=== PATIENT | female | born 1990 | race Caucasian/White ===

== ENCOUNTER 2022-07-28 09:05 | Outpatient (OUT) | payer BC, SELFPAY ==
[2022-07-28 09:28] VITALS: BP 107/56; PULSE 129
== END 2022-07-28 10:37 | disposition home or self-care (01) ==
LOC: FBCO 09:09 → FBC 09:12
PROVIDERS: PCP Internal Medicine; Visit Provider Midwife
DX: O99.280 Endocrine, nutritional and metabolic diseases complicating pregnancy, unspecified trimester (principal); Z3A.00 Weeks of gestation of pregnancy not specified
CPT/HCPCS: 59025

== ENCOUNTER 2022-08-12 17:52 | Inpatient (IN) | payer BC, SELFPAY ==
[2022-08-12] VITALS (15 sets, daily range): BP systolic 88–121; BP diastolic 50–66; PULSE 92–118; RESP 16; TEMP 36.6
--- NOTE | 2022-08-12 18:20 | PC.NURSE ---
Epidural before breaking water
[2022-08-12] MEDS: DINOPROSTONE 10 MG VAG INSERT.ER VAGINAL (18:58)
[2022-08-12 19:01] LABS: Basophils Percent Auto 0.1 % (0.2-2.0); Eosinophils Absolute Auto 0.1 10^3/uL (0.0-0.7); Eosinophils Percent Auto 0.8 % (0.9-7.0); Hematocrit 33.9 % (36.0-48.0); Hemoglobin 11.2 g/dL (12.0-16.0); Immature Granulocytes Abs Auto 0.09 10^3/uL (0.00-0.03); Immature Granulocytes Pct Auto 0.9 % (0.0-0.5); Lymphocytes Absolute Auto 1.4 10^3/uL (1.2-3.8); Mean Corpuscular Hemoglobin 28.1 pg (26.7-34.0); Mean Corpuscular Volume 85.2 fL (81.0-99.0); Mean Platelet Volume 9.7 fL (9.5-13.5); Monocytes Absolute Auto 0.7 10^3/uL (0.3-0.8); Neutrophils Absolute Auto 7.9 10^3/uL (1.4-6.5); Neutrophils Percent Auto 77.2 % (43.0-75.0); Platelet Count 184 10^3/uL (150-450); Red Blood Count 3.98 10^6/uL (4.20-5.40); Red Cell Distribution Width 13.2 % (11.0-15.0); White Blood Count 10.2 10^3/uL (4.0-11.0)
[2022-08-12 19:21] LABS: Amphetamine Screen Urine NEGATIVE (NEGATIVE); Barbiturates Screen Urine NEGATIVE (NEGATIVE); Benzodiazepines Screen Urine NEGATIVE (NEGATIVE); Buprenorphine Screen Urine NEGATIVE (NEGATIVE); Cannabinoid Screen Urine NEGATIVE (NEGATIVE); Cocaine Screen Urine NEGATIVE (NEGATIVE); Methadone Screen Urine NEGATIVE (NEGATIVE); Methamphetamines Screen Urine NEGATIVE (NEGATIVE); Opiate Screen Urine NEGATIVE (NEGATIVE); Oxycodone Screen Urine NEGATIVE (NEGATIVE); Phencyclidine Screen Urine NEGATIVE (NEGATIVE); Tricyclic Antidepressant Urine NEGATIVE (NEGATIVE)
--- NOTE | 2022-08-12 19:37 | W.PC.ACHO ---
Registration Status: ADM IN Primary Language: Bahamian Preferred Language: Bahamian Active Medications Generic Name Dose Route Start Last Admin Trade Name Freq PRN Reason Stop Dose Admin Carboprost Tromethamine 250 mcg 08/12/22 18:04 Carboprost Tromethamine 250 Mcg/Ml 1 Ml Vial IM Q15M PRN Bleeding Sodium Chloride 1,000 mls @ 125 mls/hr 08/12/22 18:15 Sodium Chloride 0.9% 1,000 Ml IV .Q8H PRN Labor Induction Oxytocin 10 unit/ Sodium 501 mls @ 6.012 mls/hr 08/12/22 06:00 Chloride IV Q24H KENNA 2 MILLIUNIT/MIN Lidocaine 5 ml 08/12/22 18:04 Lidocaine Viscous 2% 15 Ml Topical Solution TOPICAL ONCE PRN Pain Lidocaine 1 ml 08/12/22 18:04 Lidocaine Hcl 1% 200 Mg/20 Ml Mdv INJ ONCE PRN Pain Methylergonovine Maleate 0.2 mg 08/12/22 18:04 Methylergonovine Maleate 0.2 Mg/Ml Ampule IM ONCE PRN Uterine Contractility/Contract Misoprostol 600 mcg 08/12/22 18:04 Misoprostol 100 Mcg Tablet PO ONCE PRN Uterine Bleeding Nalbuphine HCl 10 mg 08/12/22 18:04 Nalbuphine Hcl 10 Mg/Ml Ampule IV Q3H PRN Pain Ondansetron HCl 4 mg 08/12/22 18:04 Ondansetron Pf 4 Mg/2 Ml Vial IV Q6H PRN Nausea And Vomiting Ondansetron HCl 4 mg 08/12/22 18:04 Ondansetron 4 Mg Rapdis Tablet SL Q6H PRN Nausea And Vomiting Oxytocin 10 unit 08/12/22 18:04 Oxytocin 100 Unit/10 Ml Vial IM ONCE PRN Uterine Bleeding Diet Category Date Time Status Clear Liquid Diet Diet 08/13/22 Breakfast Active Consults Category Date Time Status Consult to Anesthesiology Routine Cons 08/12/22 Ordered IV Insertion/Site Date of IV Line Insertion [18g 08/12/22 right Hand] IV Insertion Time [18g right 18:40 Hand] Neurology Patient orientation (short person,place,time,situation list) Respiratory Oxygen Delivery Method Room Air
--- NOTE | 2022-08-12 22:33 | PC.NURSE ---
Patient resting comfortably. Denies any needs at this time.
[2022-08-13] VITALS (97 sets, daily range): BP systolic 46–250; BP diastolic 20–152; PULSE 71–121; RESP 16–18; TEMP 35.7–36.7
[2022-08-13] MEDS: ACETAMINOPHEN 500 MG TABLET 1000 MG PO (03:20)
[2022-08-13] MEDS: OXYTOCIN 10 UNIT in 0.9 % SODIUM CHLORIDE 500 ML 6.012 UNIT IV ×2 (07:00→19:09)
[2022-08-13] MEDS: 0.9 % SODIUM CHLORIDE 1,000 ML 125 ML IV ×5 (07:00→18:02)
--- NOTE | 2022-08-13 07:15 | W.PC.ACHO ---
Registration Status: ADM IN Primary Language: Ugandan Preferred Language: Ugandan Active Medications Generic Name Dose Route Start Last Admin Trade Name Juan PRN Reason Stop Dose Admin Carboprost Tromethamine 250 mcg 08/12/22 18:04 Carboprost Tromethamine 250 Mcg/Ml 1 Ml Vial IM Q15M PRN Bleeding Sodium Chloride 1,000 mls @ 125 mls/hr 08/12/22 18:15 Sodium Chloride 0.9% 1,000 Ml IV .Q8H PRN Labor Induction Oxytocin 10 unit/ Sodium 501 mls @ 6.012 mls/hr 08/12/22 06:00 Chloride IV Q24H KENNA 2 MILLIUNIT/MIN Oxytocin 20 unit/ Sodium 1,002 mls @ 125 mls/hr 08/13/22 05:15 Chloride IV 08/13/22 13:14 Q8H PRN Post Protocol Lidocaine 5 ml 08/12/22 18:04 Lidocaine Viscous 2% 15 Ml Topical Solution TOPICAL ONCE PRN Pain Lidocaine 1 ml 08/12/22 18:04 Lidocaine Hcl 1% 200 Mg/20 Ml Mdv INJ ONCE PRN Pain Methylergonovine Maleate 0.2 mg 08/12/22 18:04 Methylergonovine Maleate 0.2 Mg/Ml Ampule IM ONCE PRN Uterine Contractility/Contract Misoprostol 600 mcg 08/12/22 18:04 Misoprostol 100 Mcg Tablet PO ONCE PRN Uterine Bleeding Nalbuphine HCl 10 mg 08/12/22 18:04 Nalbuphine Hcl 10 Mg/Ml Ampule IV Q3H PRN Pain Ondansetron HCl 4 mg 08/12/22 18:04 Ondansetron Pf 4 Mg/2 Ml Vial IV Q6H PRN Nausea And Vomiting Ondansetron HCl 4 mg 08/12/22 18:04 Ondansetron 4 Mg Rapdis Tablet SL Q6H PRN Nausea And Vomiting Oxytocin 10 unit 08/12/22 18:04 Oxytocin 100 Unit/10 Ml Vial IM ONCE PRN Uterine Bleeding Diet Category Date Time Status Clear Liquid Diet Diet 08/13/22 Breakfast Active IV Insertion/Site Date of IV Line Insertion [18g 08/12/22 right Hand] IV Insertion Time [18g right 18:40 Hand] Neurology Patient orientation (short person,place,time,situation list) Respiratory Lung sounds [Throughout] clear Oxygen Delivery Method Room Air Oxygen Delivery Method Room Air Renal Bladder Pattern Continent
--- NOTE | 2022-08-13 07:27 | PM.OBHP ---
OB - H&P: HPI History of Present Illness Chief complaint: CERVADEL : 2 Para: 1 Date of last menstrual period: 11/03/2021 Gestational age based on last menstrual period: 39w 4d Indications for induction: other (hypothyroid ) History of Present Dating criteria: LMP confirmed by 1st trimester US care: good care Ultrasounds: normal 1st trimester US and normal mid trimester US complications: other complications comment: hypothyroid Labs Blood type: O (+) positive Rubella: immune RPR/VDLR: nonreactive GBS status: negative HBsAG: negative Review of Systems ROS Status of ROS 10 or more systems reviewed and unremarkable except as noted in history and below PFSH PFSH Social History Gender Identity: female Meds Home Medications and Allergies Home Medications Medication Instructions Recorded Confirmed Type aspirin 81 mg capsule 81 mg PO DAILY 08/12/22 08/12/22 History levothyroxine 200 mcg tablet 200 mcg PO DAILY 08/12/22 08/12/22 History levothyroxine 75 mcg tablet 75 mcg PO DAILY 08/12/22 08/12/22 History vit no.95-ferrous 1 tab PO DAILY 08/12/22 08/12/22 History fumarate 28 mg-folic acid 800 mcg tablet () sertraline 25 mg tablet 25 mg PO Q24H 08/12/22 08/12/22 History Allergies Allergy/AdvReac Type Severity Reaction Status Date / Time Penicillins Allergy Intermediate Verified 08/12/22 18:57 Exam Constitutional Vital Signs - 24 hr 08/12/22 18:14 08/12/22 19:00 08/12/22 19:15 Temperature 97.9 F Pulse Rate 117 H 118 H 96 H Respiratory Rate Blood Pressure 121/61 H 117/66 110/61 Blood Pressure [Left Arm] Oxygen Delivery Method 08/12/22 19:30 08/12/22 19:45 08/12/22 20:00 Temperature Pulse Rate 100 H 101 H 108 H Respiratory Rate Blood Pressure 106/59 L 105/60 116/65 Blood Pressure [Left Arm] Oxygen Delivery Method 08/12/22 20:15 08/12/22 20:30 08/12/22 20:45 Temperature Pulse Rate 96 H 100 H 93 H Respiratory Rate Blood Pressure 106/60 107/61 105/58 L Blood Pressure [Left Arm] Oxygen Delivery Method 08/12/22 21:00 08/12/22 21:22 08/12/22 22:22 Temperature Pulse Rate 99 H 92 H 99 H Respiratory Rate Blood Pressure 104/57 L 113/59 L 88/51 L Blood Pressure [Left Arm] Oxygen Delivery Method 08/12/22 22:28 08/12/22 23:22 08/13/22 00:22 Temperature Pulse Rate 99 H 109 H 103 H Respiratory Rate Blood Pressure 90/52 L 97/50 L 89/54 L Blood Pressure [Left Arm] Oxygen Delivery Method 08/13/22 00:22 08/12/22 23:22 08/12/22 22:22 Temperature 97.9 F Pulse Rate Respiratory Rate 16 16 16 Blood Pressure Blood Pressure [Left Arm] Oxygen Delivery Method 08/13/22 01:22 08/13/22 02:22 08/13/22 02:52 Temperature 98 F Pulse Rate 115 H 95 H Respiratory Rate Blood Pressure 106/55 L 105/58 L Blood Pressure [Left Arm] Oxygen Delivery Method 08/13/22 03:22 08/13/22 04:22 08/13/22 04:22 Temperature Pulse Rate 90 102 H Respiratory Rate 16 Blood Pressure 120/64 H 114/60 Blood Pressure [Left Arm] Oxygen Delivery Method 08/13/22 05:22 08/13/22 06:26 08/13/22 07:22 Temperature Pulse Rate 96 H 91 H 99 H Respiratory Rate Blood Pressure 110/66 108/62 111/66 Blood Pressure [Left Arm] Oxygen Delivery Method 08/12/22 18:13 08/13/22 00:20 Temperature 97.8 F Pulse Rate 117 H Respiratory Rate 16 Blood Pressure Blood Pressure [Left Arm] 121/61 H Oxygen Delivery Method Room Air Room Air Results Labs Labs: Short CBC 08/12/22 Range/Units 18:40 WBC 10.2 (4.0-11.0) 10^3/uL Hgb 11.2 L (12.0-16.0) g/dL Hct 33.9 L (36.0-48.0) % Plt Count 184 (150-450) 10^3/uL
--- NOTE | 2022-08-13 08:29 | PC.NURSE ---
0826 damaso berry at bedside. pt not symptomatic with lower bp. no meds given.
--- NOTE | 2022-08-13 08:30 | PC.NURSE ---
0830 roger 100 mcg given per car supervisor
--- NOTE | 2022-08-13 08:33 | PC.NURSE ---
0833 roger 100 mcg per shoe lining fitter
--- NOTE | 2022-08-13 08:35 | PC.NURSE ---
0833 lithographer apprentice remains in room. notified of bp. pt feels fine . denies dizziness or lightheadedness.
[2022-08-13] MEDS: ROPIVACAINE HCL/PF 400 MG/200 ML PREMIX 6 MG EPIDURAL (08:40)
[2022-08-13] MEDS: FENTANYL CITRATE/PF 100 MCG/2 ML VIAL EPIDURAL ×2 (08:41→11:20)
--- NOTE | 2022-08-13 09:19 | PM.OBPN ---
OB - PN: Subj Subjective Patient comments: no complaints Narrative: SVE performed /-3 posterior, unable to break water at this time due to station. Will continue pitocin infusion, reposition patient frequently. Exam Constitutional Vital Signs - 24 hr 08/12/22 18:14 08/12/22 19:00 08/12/22 19:15 Temperature 97.9 F Pulse Rate 117 H 118 H 96 H Respiratory Rate Blood Pressure 121/61 H 117/66 110/61 Blood Pressure [Left Arm] Oxygen Delivery Method 08/12/22 19:30 08/12/22 19:45 08/12/22 20:00 Temperature Pulse Rate 100 H 101 H 108 H Respiratory Rate Blood Pressure 106/59 L 105/60 116/65 Blood Pressure [Left Arm] Oxygen Delivery Method 08/12/22 20:15 08/12/22 20:30 08/12/22 20:45 Temperature Pulse Rate 96 H 100 H 93 H Respiratory Rate Blood Pressure 106/60 107/61 105/58 L Blood Pressure [Left Arm] Oxygen Delivery Method 08/12/22 21:00 08/12/22 21:22 08/12/22 22:22 Temperature Pulse Rate 99 H 92 H 99 H Respiratory Rate Blood Pressure 104/57 L 113/59 L 88/51 L Blood Pressure [Left Arm] Oxygen Delivery Method 08/12/22 22:28 08/12/22 23:22 08/13/22 00:22 Temperature Pulse Rate 99 H 109 H 103 H Respiratory Rate Blood Pressure 90/52 L 97/50 L 89/54 L Blood Pressure [Left Arm] Oxygen Delivery Method 08/13/22 00:22 08/12/22 23:22 08/12/22 22:22 Temperature 97.9 F Pulse Rate Respiratory Rate 16 16 16 Blood Pressure Blood Pressure [Left Arm] Oxygen Delivery Method 08/13/22 01:22 08/13/22 02:22 08/13/22 02:52 Temperature 98 F Pulse Rate 115 H 95 H Respiratory Rate Blood Pressure 106/55 L 105/58 L Blood Pressure [Left Arm] Oxygen Delivery Method 08/13/22 03:22 08/13/22 04:22 08/13/22 04:22 Temperature Pulse Rate 90 102 H Respiratory Rate 16 Blood Pressure 120/64 H 114/60 Blood Pressure [Left Arm] Oxygen Delivery Method 08/13/22 05:22 08/13/22 06:26 08/13/22 07:22 Temperature Pulse Rate 96 H 91 H 99 H Respiratory Rate Blood Pressure 110/66 108/62 111/66 Blood Pressure [Left Arm] Oxygen Delivery Method 08/13/22 07:27 08/13/22 07:53 08/13/22 08:14 Temperature 97.3 F L Pulse Rate 99 H 115 H Respiratory Rate Blood Pressure 112/65 107/61 Blood Pressure [Left Arm] Oxygen Delivery Method 08/13/22 08:21 08/13/22 08:26 08/13/22 08:27 Temperature Pulse Rate 97 H 90 97 H Respiratory Rate Blood Pressure 108/56 L 84/46 L 84/49 L Blood Pressure [Left Arm] Oxygen Delivery Method 08/13/22 08:30 08/13/22 08:32 08/13/22 08:34 Temperature Pulse Rate 97 H 86 88 Respiratory Rate Blood Pressure 80/43 L 90/54 L 84/47 L Blood Pressure [Left Arm] Oxygen Delivery Method 08/13/22 08:38 08/13/22 08:42 08/13/22 08:47 Temperature Pulse Rate 93 H 96 H 86 Respiratory Rate Blood Pressure 90/55 L 83/56 L 101/55 L Blood Pressure [Left Arm] Oxygen Delivery Method 08/13/22 08:50 08/13/22 09:01 08/13/22 09:15 Temperature Pulse Rate 83 88 88 Respiratory Rate Blood Pressure 89/53 L 88/49 L 91/53 L Blood Pressure [Left Arm] Oxygen Delivery Method 08/12/22 18:13 08/13/22 00:20 Temperature 97.8 F Pulse Rate 117 H Respiratory Rate 16 Blood Pressure Blood Pressure [Left Arm] 121/61 H Oxygen Delivery Method Room Air Room Air Results Labs Labs: Short CBC 08/12/22 Range/Units 18:40 WBC 10.2 (4.0-11.0) 10^3/uL Hgb 11.2 L (12.0-16.0) g/dL Hct 33.9 L (36.0-48.0) % Plt Count 184 (150-450) 10^3/uL OB - PN: A/P Time Spent with Patient Time: Total time spent is greater than 50% in coordination of care (as documented) at patient's floor/unit and/or counseling patient: Total time spent with greater than 50% in coordination of care (as documented) at patient's floor/unit and/or counseling patient: less than 15 minutes
[2022-08-13] MEDS: EPHEDRINE SULFATE 50 MG/ML VIAL IV ×4 (14:08→17:41)
--- NOTE | 2022-08-13 19:18 | W.PC.ACHO ---
Registration Status: ADM IN Primary Language: Ecuadorean Preferred Language: Ecuadorean 1907 care relinquished to elizabeth barber Active Medications Generic Name Dose Route Start Last Admin Trade Name Juan PRN Reason Stop Dose Admin Carboprost Tromethamine 250 mcg 08/12/22 18:04 Carboprost Tromethamine 250 Mcg/Ml 1 Ml Vial IM Q15M PRN Bleeding Diphenhydramine HCl 25 mg 08/13/22 07:14 Diphenhydramine Hcl 50 Mg/Ml (1ml) Vial IV Q6H PRN Itching Ephedrine Sulfate 5 mg 08/13/22 07:14 08/13/22 17:41 Ephedrine Sulfate 50 Mg/Ml Vial IV 5 mg Q5M PRN Administration Blood Pressure - Low Fentanyl Citrate 100 mcg 08/13/22 13:06 Fentanyl Citrate/Pf 100 Mcg/2 Ml Vial EPIDURAL Q4H PRN Pain Sodium Chloride 1,000 mls @ 125 mls/hr 08/12/22 18:15 08/13/22 18:02 Sodium Chloride 0.9% 1,000 Ml IV 125 mls/hr .Q8H PRN Administration Labor Induction Oxytocin 10 unit/ Sodium 501 mls @ 6.012 mls/hr 08/12/22 06:00 08/13/22 19:09 Chloride IV 2 milliunit/min Q24H KENNA 6.012 mls/hr Administration 2 MILLIUNIT/MIN Ropivacaine/Sodium Chloride 400 mg in 200 mls @ 6 mls/hr 08/13/22 07:15 08/13/22 08:40 Naropin 0.2% 400 Mg/200 Ml Bag EPIDURAL 6 mls/hr Q24H KENNA 6 mls/hr Administration Ropivacaine/Sodium Chloride 400 mg in 200 mls @ 6 mls/hr 08/13/22 13:15 Naropin 0.2% 400 Mg/200 Ml Bag EPIDURAL Q24H KENNA Lidocaine 5 ml 08/12/22 18:04 Lidocaine Viscous 2% 15 Ml Topical Solution TOPICAL ONCE PRN Pain Lidocaine 1 ml 08/12/22 18:04 Lidocaine Hcl 1% 200 Mg/20 Ml Mdv INJ ONCE PRN Pain Lidocaine 5 ml 08/13/22 07:14 Lidocaine Hcl 2% Pf 100 Mg/5 Ml Vial INJ Q1H PRN Pain Lidocaine 5 ml 08/13/22 13:06 Lidocaine Hcl 2% Pf 100 Mg/5 Ml Vial INJ Q1H PRN Pain Methylergonovine Maleate 0.2 mg 08/12/22 18:04 Methylergonovine Maleate 0.2 Mg/Ml Ampule IM ONCE PRN Uterine Contractility/Contract Misoprostol 600 mcg 08/12/22 18:04 Misoprostol 100 Mcg Tablet PO ONCE PRN Uterine Bleeding Nalbuphine HCl 10 mg 08/12/22 18:04 Nalbuphine Hcl 10 Mg/Ml Ampule IV Q3H PRN Pain Ondansetron HCl 4 mg 08/12/22 18:04 Ondansetron Pf 4 Mg/2 Ml Vial IV Q6H PRN Nausea And Vomiting Ondansetron HCl 4 mg 08/12/22 18:04 Ondansetron 4 Mg Rapdis Tablet SL Q6H PRN Nausea And Vomiting Oxytocin 10 unit 08/12/22 18:04 Oxytocin 100 Unit/10 Ml Vial IM ONCE PRN Uterine Bleeding Diet Category Date Time Status Regular Consistency Diet Diet 08/13/22 Dinner Active Respiratory Lung sounds [Throughout] clear Oxygen Delivery Method Room Air Renal Bladder Pattern Continent
--- NOTE | 2022-08-13 20:31 | PM.OBPN ---
OB - PN: Subj Subjective Patient comments: no complaints Narrative: SVE performed, patient is 7-8/90/[address] Duenas updated with patients exam and progress. Exam Constitutional Vital Signs - 24 hr 08/12/22 20:45 08/12/22 21:00 08/12/22 21:22 Temperature Pulse Rate 93 H 99 H 92 H Respiratory Rate Blood Pressure 105/58 L 104/57 L 113/59 L Oxygen Delivery Method 08/12/22 22:22 08/12/22 22:28 08/12/22 23:22 Temperature Pulse Rate 99 H 99 H 109 H Respiratory Rate Blood Pressure 88/51 L 90/52 L 97/50 L Oxygen Delivery Method 08/13/22 00:22 08/13/22 00:22 08/12/22 23:22 Temperature Pulse Rate 103 H Respiratory Rate 16 16 Blood Pressure 89/54 L Oxygen Delivery Method 08/12/22 22:22 08/13/22 01:22 08/13/22 02:22 Temperature 97.9 F Pulse Rate 115 H 95 H Respiratory Rate 16 Blood Pressure 106/55 L 105/58 L Oxygen Delivery Method 08/13/22 02:52 08/13/22 03:22 08/13/22 04:22 Temperature 98 F Pulse Rate 90 102 H Respiratory Rate Blood Pressure 120/64 H 114/60 Oxygen Delivery Method 08/13/22 04:22 08/13/22 05:22 08/13/22 06:26 Temperature Pulse Rate 96 H 91 H Respiratory Rate 16 Blood Pressure 110/66 108/62 Oxygen Delivery Method 08/13/22 07:22 08/13/22 07:27 08/13/22 07:53 Temperature 97.3 F L Pulse Rate 99 H 99 H Respiratory Rate Blood Pressure 111/66 112/65 Oxygen Delivery Method 08/13/22 08:14 08/13/22 08:21 08/13/22 08:26 Temperature Pulse Rate 115 H 97 H 90 Respiratory Rate Blood Pressure 107/61 108/56 L 84/46 L Oxygen Delivery Method 08/13/22 08:27 08/13/22 08:30 08/13/22 08:32 Temperature Pulse Rate 97 H 97 H 86 Respiratory Rate Blood Pressure 84/49 L 80/43 L 90/54 L Oxygen Delivery Method 08/13/22 08:34 08/13/22 08:38 08/13/22 08:42 Temperature Pulse Rate 88 93 H 96 H Respiratory Rate Blood Pressure 84/47 L 90/55 L 83/56 L Oxygen Delivery Method 08/13/22 08:47 08/13/22 08:50 08/13/22 09:01 Temperature Pulse Rate 86 83 88 Respiratory Rate Blood Pressure 101/55 L 89/53 L 88/49 L Oxygen Delivery Method 08/13/22 09:15 08/13/22 09:22 08/13/22 09:24 Temperature 97.2 F L Pulse Rate 88 88 Respiratory Rate Blood Pressure 91/53 L 98/55 L Oxygen Delivery Method 08/13/22 09:39 08/13/22 09:54 08/13/22 10:09 Temperature Pulse Rate 89 90 97 H Respiratory Rate Blood Pressure 96/53 L 94/55 L 94/51 L Oxygen Delivery Method 08/13/22 10:24 08/13/22 10:40 08/13/22 10:55 Temperature Pulse Rate 93 H 81 86 Respiratory Rate Blood Pressure 94/51 L 106/60 96/50 L Oxygen Delivery Method 08/13/22 11:16 08/13/22 11:25 08/13/22 11:30 Temperature 98.1 F Pulse Rate 90 114 H Respiratory Rate Blood Pressure 118/58 L 103/70 Oxygen Delivery Method 08/13/22 11:40 08/13/22 11:54 08/13/22 12:09 Temperature Pulse Rate 103 H 93 H 100 H Respiratory Rate Blood Pressure 98/54 L 98/56 L 97/52 L Oxygen Delivery Method 08/13/22 12:24 08/13/22 12:39 08/13/22 12:42 Temperature 97.2 F L Pulse Rate 87 93 H Respiratory Rate Blood Pressure 92/52 L 90/52 L Oxygen Delivery Method 08/13/22 12:55 08/13/22 13:09 08/13/22 13:25 Temperature Pulse Rate 115 H 107 H 90 Respiratory Rate Blood Pressure 113/61 111/52 L 100/55 L Oxygen Delivery Method 08/13/22 13:40 08/13/22 13:54 08/13/22 13:57 Temperature Pulse Rate 107 H 105 H 101 H Respiratory Rate Blood Pressure 105/52 L 108/57 L 110/58 L Oxygen Delivery Method 08/13/22 14:02 08/13/22 14:05 08/13/22 14:08 Temperature 97.3 F L Pulse Rate 121 H 81 Respiratory Rate Blood Pressure 108/55 L 85/41 L Oxygen Delivery Method 08/13/22 14:10 08/13/22 14:16 08/13/22 14:18 Temperature Pulse Rate 71 77 91 H Respiratory Rate Blood Pressure 46/20 L 115/56 L 115/55 L Oxygen Delivery Method 08/13/22 14:21 08/13/22 14:25 08/13/22 14:29 Temperature Pulse Rate 103 H 103 H 86 Respiratory Rate Blood Pressure 109/58 L 103/52 L 81/41 L Oxygen Delivery Method 08/13/22 14:32 08/13/22 14:37 08/13/22 14:41 Temperature Pulse Rate 89 83 79 Respiratory Rate Blood Pressure 105/51 L 105/57 L 118/58 L Oxygen Delivery Method 08/13/22 14:45 08/13/22 15:05 08/13/22 15:19 Temperature Pulse Rate 79 100 H 104 H Respiratory Rate Blood Pressure 111/56 L 97/49 L 92/51 L Oxygen Delivery Method 08/13/22 15:34 08/13/22 15:49 08/13/22 16:05 Temperature Pulse Rate 107 H 101 H 82 Respiratory Rate Blood Pressure 87/50 L 110/49 L 105/59 L Oxygen Delivery Method 08/13/22 16:07 08/13/22 16:07 08/13/22 16:19 Temperature 96.3 F L 96.4 F L Pulse Rate 103 H Respiratory Rate Blood Pressure 111/59 L Oxygen Delivery Method 08/13/22 16:35 08/13/22 16:49 08/13/22 17:01 Temperature 97.0 F L Pulse Rate 99 H 103 H Respiratory Rate Blood Pressure 111/55 L 107/59 L Oxygen Delivery Method 08/13/22 17:04 08/13/22 17:20 08/13/22 17:36 Temperature Pulse Rate 91 H 118 H 110 H Respiratory Rate Blood Pressure 104/59 L 109/56 L 77/46 L Oxygen Delivery Method 08/13/22 17:39 08/13/22 17:40 08/13/22 17:42 Temperature Pulse Rate 102 H 88 102 H Respiratory Rate Blood Pressure 69/34 L 76/48 L 72/47 L Oxygen Delivery Method 08/13/22 17:44 08/13/22 17:46 08/13/22 17:49 Temperature Pulse Rate 98 H 84 96 H Respiratory Rate Blood Pressure 79/53 L 83/53 L 85/51 L Oxygen Delivery Method 08/13/22 17:57 08/13/22 17:59 08/13/22 18:06 Temperature 97.1 F L Pulse Rate 93 H 103 H Respiratory Rate Blood Pressure 90/53 L 88/50 L Oxygen Delivery Method 08/13/22 18:19 08/13/22 18:49 08/13/22 19:04 Temperature Pulse Rate 104 H 96 H 102 H Respiratory Rate Blood Pressure 95/53 L 109/57 L 106/57 L Oxygen Delivery Method 08/13/22 19:20 08/13/22 19:20 08/13/22 19:35 Temperature 97.1 F L Pulse Rate 108 H 95 H Respiratory Rate 16 Blood Pressure 119/51 L 108/58 L Oxygen Delivery Method 08/13/22 19:50 08/13/22 19:50 08/13/22 20:20 Temperature Pulse Rate 98 H Respiratory Rate 16 Blood Pressure 101/50 L 250/152 H Oxygen Delivery Method 08/13/22 20:23 08/13/22 00:20 Temperature Pulse Rate 90 Respiratory Rate Blood Pressure 124/76 H Oxygen Delivery Method Room Air OB - PN: A/P Time Spent with Patient Time: Total time spent is greater than 50% in coordination of care (as documented) at patient's floor/unit and/or counseling patient: Total time spent with greater than 50% in coordination of care (as documented) at patient's floor/unit and/or counseling patient: less than 15 minutes
--- NOTE | 2022-08-13 22:43 | P.OBPRC_ITS ---
Procedure Pre-op/Post-op diagnoses: Pre-Op/Post-Op Diagnoses Operation Date: 08/13/22 2300 <No data on this case meets the specified criteria> Labor at full-term. intolerance of labor. Postoperative diagnosis same. Procedure: Primary low transverse section. The patient was placed on the OR table in the dorsal supine position, prepped and draped in a sterile fashion. A Pfannenstiel incision was placed and carried down through the abdominal wall in layers. The fascia was incised transversely. The rectus muscles were in the midline and peritoneum was opened sharply. The uterine serosa was incised over the lower uterine segment. The b ladder was pushed down. The uterus was incised in the lower uterine segment area and incision extended transversely with bandage scissors. Amniotic fluid was clear. The head was brought out through the incision without difficulty. The rest of the baby came out without difficulty. The cord was clamped and cut and baby transferred to pediatric personnel for further management. The placent a delivered spontaneously. The uterus was wiped off of all clots and debris clean. Extension of the uterine incision on the left was noticed to about 5 cm in length. It was closed using running interlocking #1 Monocryl sutures. Uterine incision was closed with #1 Monocryl in the first layer and the second layer of running imbricating #1 Monocryl sutures. . Additional 0 Monocryl sutures were required for hemostasis. Hemostasis was excellent. The abdomen was then irrigated of all clots and debris and cleared and hemostasis was checked again and it was excellent. The abdomen was then closed in layers. The fascia was closed using running #0 PDS sutures. The subcutaneous layer was lavaged with normal saline. Hemostasis was achieved with Bovie cautery. The skin was approximated with subcuticular 4-0 Vicryl closure. The patient tolerated the procedure well. She was then taken into the Recovery Room in stable condition. Operation Date: 08/13/22 14:30 <No data on this case meets the specified criteria> Estimated blood loss (mL): 1,100 Disposition: floor Anesthesia type: Epidural Complications: none Narrative: . Surgeon Asst Rubén. Ruth Perez CNM.
[2022-08-13] MEDS: LACTATED RINGER'S SOLUTION 1,000 ML 1000 ML IV ×2 (22:50→23:23)
[2022-08-14] VITALS (65 sets, daily range): BP systolic 72–144; BP diastolic 39–87; PULSE 62–137; RESP 11–25; TEMP 36.3–36.8; O2SAT 84–100
--- NOTE | 2022-08-14 00:19 | P.OBPRC_ITS ---
Procedure Pre-op/Post-op diagnoses: Pre-Op/Post-Op Diagnoses Operation Date: 08/13/22 14:30 <No data on this case meets the specified criteria> Procedure: Procedures Operation Date: 08/13/22 14:30 Actual Procedure Side Surgeon p with delivery of viable baby boy Not Applicable Jorge Alberto Duenas MD [employer]frame Systems Programmer: TONY SELLERS Narrative: i first assisted Dr Duenas as directed. I independently closed the SQ layer with 3-0 vicryl without difficulty. I then independently closed the skin incision with 4-0 vicryl on a Aidan needle. Hemostasis noted at completion. Patient tolerated well.
--- NOTE | 2022-08-14 00:24 | PM.OBHP ---
OB - H&P: HPI History of Present Illness Chief complaint: CERVADEL Date of last menstrual period: 11/03/2021 History of Present complications: other complications comment: hypothyroid Review of Systems ROS Status of ROS 10 or more systems reviewed and unremarkable except as noted in history and below [facility] Medical History (Updated 08/13/22 @ 16:24 by Irma Blue RN) Social History Gender Identity: female Meds Home Medications and Allergies Home Medications Medication Instructions Recorded Confirmed Type aspirin 81 mg capsule 81 mg PO DAILY 08/12/22 08/12/22 History levothyroxine 200 mcg tablet 200 mcg PO DAILY 08/12/22 08/12/22 History levothyroxine 75 mcg tablet 75 mcg PO DAILY 08/12/22 08/12/22 History vit no.95-ferrous 1 tab PO DAILY 08/12/22 08/12/22 History fumarate 28 mg-folic acid 800 mcg tablet () sertraline 25 mg tablet 25 mg PO Q24H 08/12/22 08/12/22 History Allergies Allergy/AdvReac Type Severity Reaction Status Date / Time Penicillins Allergy Intermediate Verified 08/12/22 18:57 Exam Constitutional Vital Signs - 24 hr 08/13/22 01:22 08/13/22 02:22 08/13/22 02:52 Temperature 98 F Pulse Rate 115 H 95 H Respiratory Rate Blood Pressure 106/55 L 105/58 L 08/13/22 03:22 08/13/22 04:22 08/13/22 04:22 Temperature Pulse Rate 90 102 H Respiratory Rate 16 Blood Pressure 120/64 H 114/60 08/13/22 05:22 08/13/22 06:26 08/13/22 07:22 Temperature Pulse Rate 96 H 91 H 99 H Respiratory Rate Blood Pressure 110/66 108/62 111/66 08/13/22 07:27 08/13/22 07:53 08/13/22 08:14 Temperature 97.3 F L Pulse Rate 99 H 115 H Respiratory Rate Blood Pressure 112/65 107/61 08/13/22 08:21 08/13/22 08:26 08/13/22 08:27 Temperature Pulse Rate 97 H 90 97 H Respiratory Rate Blood Pressure 108/56 L 84/46 L 84/49 L 08/13/22 08:30 08/13/22 08:32 08/13/22 08:34 Temperature Pulse Rate 97 H 86 88 Respiratory Rate Blood Pressure 80/43 L 90/54 L 84/47 L 08/13/22 08:38 08/13/22 08:42 08/13/22 08:47 Temperature Pulse Rate 93 H 96 H 86 Respiratory Rate Blood Pressure 90/55 L 83/56 L 101/55 L 08/13/22 08:50 08/13/22 09:01 08/13/22 09:15 Temperature Pulse Rate 83 88 88 Respiratory Rate Blood Pressure 89/53 L 88/49 L 91/53 L 08/13/22 09:22 08/13/22 09:24 08/13/22 09:39 Temperature 97.2 F L Pulse Rate 88 89 Respiratory Rate Blood Pressure 98/55 L 96/53 L 08/13/22 09:54 08/13/22 10:09 08/13/22 10:24 Temperature Pulse Rate 90 97 H 93 H Respiratory Rate Blood Pressure 94/55 L 94/51 L 94/51 L 08/13/22 10:40 08/13/22 10:55 08/13/22 11:16 Temperature Pulse Rate 81 86 90 Respiratory Rate Blood Pressure 106/60 96/50 L 118/58 L 08/13/22 11:25 08/13/22 11:30 08/13/22 11:40 Temperature 98.1 F Pulse Rate 114 H 103 H Respiratory Rate Blood Pressure 103/70 98/54 L 08/13/22 11:54 08/13/22 12:09 08/13/22 12:24 Temperature Pulse Rate 93 H 100 H 87 Respiratory Rate Blood Pressure 98/56 L 97/52 L 92/52 L 08/13/22 12:39 08/13/22 12:42 08/13/22 12:55 Temperature 97.2 F L Pulse Rate 93 H 115 H Respiratory Rate Blood Pressure 90/52 L 113/61 08/13/22 13:09 08/13/22 13:25 08/13/22 13:40 Temperature Pulse Rate 107 H 90 107 H Respiratory Rate Blood Pressure 111/52 L 100/55 L 105/52 L 08/13/22 13:54 08/13/22 13:57 08/13/22 14:02 Temperature Pulse Rate 105 H 101 H 121 H Respiratory Rate Blood Pressure 108/57 L 110/58 L 108/55 L 08/13/22 14:05 08/13/22 14:08 08/13/22 14:10 Temperature 97.3 F L Pulse Rate 81 71 Respiratory Rate Blood Pressure 85/41 L 46/20 L 08/13/22 14:16 08/13/22 14:18 08/13/22 14:21 Temperature Pulse Rate 77 91 H 103 H Respiratory Rate Blood Pressure 115/56 L 115/55 L 109/58 L 08/13/22 14:25 08/13/22 14:29 08/13/22 14:32 Temperature Pulse Rate 103 H 86 89 Respiratory Rate Blood Pressure 103/52 L 81/41 L 105/51 L 08/13/22 14:37 08/13/22 14:41 08/13/22 14:45 Temperature Pulse Rate 83 79 79 Respiratory Rate Blood Pressure 105/57 L 118/58 L 111/56 L 08/13/22 15:05 08/13/22 15:19 08/13/22 15:34 Temperature Pulse Rate 100 H 104 H 107 H Respiratory Rate Blood Pressure 97/49 L 92/51 L 87/50 L 08/13/22 15:49 08/13/22 16:05 08/13/22 16:07 Temperature 96.3 F L Pulse Rate 101 H 82 Respiratory Rate Blood Pressure 110/49 L 105/59 L 08/13/22 16:07 08/13/22 16:19 08/13/22 16:35 Temperature 96.4 F L Pulse Rate 103 H 99 H Respiratory Rate Blood Pressure 111/59 L 111/55 L 08/13/22 16:49 08/13/22 17:01 08/13/22 17:04 Temperature 97.0 F L Pulse Rate 103 H 91 H Respiratory Rate Blood Pressure 107/59 L 104/59 L 08/13/22 17:20 08/13/22 17:36 08/13/22 17:39 Temperature Pulse Rate 118 H 110 H 102 H Respiratory Rate Blood Pressure 109/56 L 77/46 L 69/34 L 08/13/22 17:40 08/13/22 17:42 08/13/22 17:44 Temperature Pulse Rate 88 102 H 98 H Respiratory Rate Blood Pressure 76/48 L 72/47 L 79/53 L 08/13/22 17:46 08/13/22 17:49 08/13/22 17:57 Temperature Pulse Rate 84 96 H 93 H Respiratory Rate Blood Pressure 83/53 L 85/51 L 90/53 L 08/13/22 17:59 08/13/22 18:06 08/13/22 18:19 Temperature 97.1 F L Pulse Rate 103 H 104 H Respiratory Rate Blood Pressure 88/50 L 95/53 L 08/13/22 18:49 08/13/22 19:04 08/13/22 19:20 Temperature Pulse Rate 96 H 102 H 108 H Respiratory Rate Blood Pressure 109/57 L 106/57 L 119/51 L 08/13/22 19:20 08/13/22 19:35 08/13/22 19:50 Temperature 97.1 F L Pulse Rate 95 H 98 H Respiratory Rate 16 Blood Pressure 108/58 L 101/50 L 08/13/22 19:50 08/13/22 20:20 08/13/22 20:23 Temperature Pulse Rate 90 Respiratory Rate 16 Blood Pressure 250/152 H 124/76 H 08/13/22 20:34 08/13/22 20:34 08/13/22 20:48 Temperature 97.1 F L Pulse Rate 106 H 99 H Respiratory Rate 18 Blood Pressure 97/54 L 108/57 L 08/13/22 20:48 08/13/22 21:04 08/13/22 21:19 Temperature Pulse Rate 100 H 101 H Respiratory Rate 18 Blood Pressure 115/76 119/69 08/13/22 21:49 08/13/22 22:19 08/13/22 22:31 Temperature Pulse Rate 95 H 104 H 110 H Respiratory Rate Blood Pressure 116/65 118/74 99/54 L Common normals: no apparent distress General appearance: cooperative Nutritional appearance: overweight Orientation/consciousness: Yes awake, Yes oriented to person, Yes oriented to place and Yes oriented to time [facility] Common normals: normocephalic Head and scalp: normal to inspection Face and sinus: normal facial exam Nose: external nose normal External ear: external ears normal Mouth: oral and palatal mucosa normal Eye Common normals: PERRL General eye: normal light reflex Lymph Lymphatic: no lymphadenopathy noted and no lymphedema noted Chest Common normals: inspection of chest normal Breast/axilla inspection: normal inspection of the axillae Nipple/areola: nipples/areola normal Respiratory Common normals: normal respiratory effort Effort & inspection: able to speak in complete sentences Auscultation: clear to auscultation bilaterally Cardio Common normals: no JVD, regular rate and regular rhythm Rate: regular rate Rhythm: regular rhythm GI Common normals: Normal to inspection, nondistended, normoactive bowel sounds present, soft to palpation and non-tender Inspection: normal to inspection Auscultation: normoactive bowel sounds Palpation: soft, firm and other Rectal Exam - Female: deferred Common normals: no CVA tenderness External Female Exam: normal appearance of the urethra OB/external & speculum: deferred Manual OB Exam: dilated 2 cm and effaced 50% Amniotic Fluid: clear Back & Pelvis Common normals: no CVA tenderness Thoracic spine/upper back: normal to inspection Lumbar spine/lower back: normal to inspection Pelvis: buttocks normal Extremity Common normals: normal to inspection General: normal exam except as noted Neuro Common normals: oriented x3 Sensorium/orientation: awake, alert, oriented to person, oriented to place and oriented to time Speech: speech normal Psych Common normals: mental status grossly normal Appearance: grossly normal Attitude: calm Activity/motor behavior: appropriate eye contact Speech: normal speech Mood and affect: anxious Thought process: normal thought process
--- NOTE | 2022-08-14 00:24 | PC.NURSE ---
Patient had a catheter present upon entrance to OR. Patient had red urine in bag. Patient's bag was checked periodically the case and upon leaving OR to go back to [facility]. Patient had 300 mL of red urine in her bag.
[2022-08-14] MEDS: KETOROLAC TROMETHAMINE 30 MG/ML VIAL IVP ×4 (00:28→19:45)
--- NOTE | 2022-08-14 01:23 | PC.NURSE ---
Fundus firm and even with small amount of bleeding noted on pad; no clots noted
--- NOTE | 2022-08-14 01:28 | PC.NURSE ---
c/o nausea; states that when blood pressure drops, she gets nauseated; no emesis; cool cloth to forehead; restless
--- NOTE | 2022-08-14 01:31 | PC.NURSE ---
moving all extremities; states lower extremities tingling
--- NOTE | 2022-08-14 01:43 | PC.NURSE ---
describes pain as cramping and in the vaginal area
--- NOTE | 2022-08-14 01:46 | PC.NURSE ---
Fundus firm and even with small amount bloody vaginal drainage without clots; moving all extremities with lower extremities tingling
--- NOTE | 2022-08-14 01:53 | PC.NURSE ---
No further c/o nausea; continues to c/o cramping in vaginal area
--- NOTE | 2022-08-14 02:00 | PC.NURSE ---
Fundus firm and even; pericare given and pad changed with moderate amount drainage noted on pad; no clots noted and no active bleeding noted; procedure tolerated well;moving all extremities
[2022-08-14 05:54] LABS: Basophils Percent Auto 0.1 % (0.2-2.0); Hematocrit 25.1 % (36.0-48.0); Hemoglobin 8.3 g/dL (12.0-16.0); Immature Granulocytes Abs Auto 0.06 10^3/uL (0.00-0.03); Immature Granulocytes Pct Auto 0.4 % (0.0-0.5); Lymphocytes Absolute Auto 0.8 10^3/uL (1.2-3.8); Lymphocytes Percent Auto 5.7 % (20.5-60.0); Mean Corpuscular HGB Conc 33.1 g/dL (29.9-35.2); Mean Corpuscular Hemoglobin 28.5 pg (26.7-34.0); Mean Corpuscular Volume 86.3 fL (81.0-99.0); Mean Platelet Volume 10.1 fL (9.5-13.5); Monocytes Absolute Auto 0.9 10^3/uL (0.3-0.8); Monocytes Percent Auto 6.4 % (1.7-12.0); Neutrophils Absolute Auto 12.8 10^3/uL (1.4-6.5); Neutrophils Percent Auto 87.4 % (43.0-75.0); Platelet Count 149 10^3/uL (150-450); Red Blood Count 2.91 10^6/uL (4.20-5.40); Red Cell Distribution Width 13.1 % (11.0-15.0); White Blood Count 14.6 10^3/uL (4.0-11.0)
[2022-08-14] MEDS: CLINDAMYCIN PHOSPHATE/D5W 900 MG/50 ML PIGGYBACK 100 MG IV (07:41)
[2022-08-14] MEDS: DOCUSATE SODIUM 100 MG CAPSULE PO (09:02)
--- NOTE | 2022-08-14 09:52 | PC.NURSE ---
0755 mom does not want to attempt to nurse baby or pump breasts now. mom requests baby to have formula.
[2022-08-14] MEDS: ENOXAPARIN SODIUM 40 MG/0.4 ML SYRINGE SUBQ (10:42)
--- NOTE | 2022-08-14 11:23 | PC.NURSE ---
1015 pt to br with assistance. gait slow and steady. rowell catheter removed and pericare completed. to chair while continuity writer changes linen. pt becomes dizzy, clammy and ringing in rears. color pale. cool cloth to head and neck smells alcohol wipes and responds appropriately. spouse standing beside pt in chair. continuity writer out to get amonia inhalant. continuity writer to room. pt snoring type resp and jerked arms. amonia placed under nose pt sits up immediately and starts talking. color to lips improve pt sat there few minutes feel better denies s/s. assisted to bed. gait stedady. vs obtained.
--- NOTE | 2022-08-14 11:30 | PC.NURSE ---
1130 feeds baby bottle
--- NOTE | 2022-08-14 12:26 | PM.OBPN ---
OB - PN: Subj Subjective Patient comments: pain well controlled status: doing well and well Narrative: Status post primary section, improving, has some dizzy spells. Appears pale. , Hemoglobin decreased from 11-8.4, we'll plan transfusion of two units of packed RBCs. Exam Narrative Exam Narrative: General exam was normal.? Breast exam was normal.? Respiratory function is normal.? Heart regular rate and rhythm.? Abdomen soft, nontender, bowel sounds positive, uterus is firm, nontender, lochia normal.? incision is clean and intact. Urine is clear. Extremities no lesions.? Neurological and psychiatric exams are grossly intact. Constitutional Vital Signs - 24 hr 08/13/22 12:39 08/13/22 12:42 08/13/22 12:55 Temperature 97.2 F L Pulse Rate 93 H 115 H Respiratory Rate Blood Pressure 90/52 L 113/61 Blood Pressure [Left Arm] Pulse Oximetry Oxygen Delivery Method 08/13/22 13:09 08/13/22 13:25 08/13/22 13:40 Temperature Pulse Rate 107 H 90 107 H Respiratory Rate Blood Pressure 111/52 L 100/55 L 105/52 L Blood Pressure [Left Arm] Pulse Oximetry Oxygen Delivery Method 08/13/22 13:54 08/13/22 13:57 08/13/22 14:02 Temperature Pulse Rate 105 H 101 H 121 H Respiratory Rate Blood Pressure 108/57 L 110/58 L 108/55 L Blood Pressure [Left Arm] Pulse Oximetry Oxygen Delivery Method 08/13/22 14:05 08/13/22 14:08 08/13/22 14:10 Temperature 97.3 F L Pulse Rate 81 71 Respiratory Rate Blood Pressure 85/41 L 46/20 L Blood Pressure [Left Arm] Pulse Oximetry Oxygen Delivery Method 08/13/22 14:16 08/13/22 14:18 08/13/22 14:21 Temperature Pulse Rate 77 91 H 103 H Respiratory Rate Blood Pressure 115/56 L 115/55 L 109/58 L Blood Pressure [Left Arm] Pulse Oximetry Oxygen Delivery Method 08/13/22 14:25 08/13/22 14:29 08/13/22 14:32 Temperature Pulse Rate 103 H 86 89 Respiratory Rate Blood Pressure 103/52 L 81/41 L 105/51 L Blood Pressure [Left Arm] Pulse Oximetry Oxygen Delivery Method 08/13/22 14:37 08/13/22 14:41 08/13/22 14:45 Temperature Pulse Rate 83 79 79 Respiratory Rate Blood Pressure 105/57 L 118/58 L 111/56 L Blood Pressure [Left Arm] Pulse Oximetry Oxygen Delivery Method 08/13/22 15:05 08/13/22 15:19 08/13/22 15:34 Temperature Pulse Rate 100 H 104 H 107 H Respiratory Rate Blood Pressure 97/49 L 92/51 L 87/50 L Blood Pressure [Left Arm] Pulse Oximetry Oxygen Delivery Method 08/13/22 15:49 08/13/22 16:05 08/13/22 16:07 Temperature 96.3 F L Pulse Rate 101 H 82 Respiratory Rate Blood Pressure 110/49 L 105/59 L Blood Pressure [Left Arm] Pulse Oximetry Oxygen Delivery Method 08/13/22 16:07 08/13/22 16:19 08/13/22 16:35 Temperature 96.4 F L Pulse Rate 103 H 99 H Respiratory Rate Blood Pressure 111/59 L 111/55 L Blood Pressure [Left Arm] Pulse Oximetry Oxygen Delivery Method 08/13/22 16:49 08/13/22 17:01 08/13/22 17:04 Temperature 97.0 F L Pulse Rate 103 H 91 H Respiratory Rate Blood Pressure 107/59 L 104/59 L Blood Pressure [Left Arm] Pulse Oximetry Oxygen Delivery Method 08/13/22 17:20 08/13/22 17:36 08/13/22 17:39 Temperature Pulse Rate 118 H 110 H 102 H Respiratory Rate Blood Pressure 109/56 L 77/46 L 69/34 L Blood Pressure [Left Arm] Pulse Oximetry Oxygen Delivery Method 08/13/22 17:40 08/13/22 17:42 08/13/22 17:44 Temperature Pulse Rate 88 102 H 98 H Respiratory Rate Blood Pressure 76/48 L 72/47 L 79/53 L Blood Pressure [Left Arm] Pulse Oximetry Oxygen Delivery Method 08/13/22 17:46 08/13/22 17:49 08/13/22 17:57 Temperature Pulse Rate 84 96 H 93 H Respiratory Rate Blood Pressure 83/53 L 85/51 L 90/53 L Blood Pressure [Left Arm] Pulse Oximetry Oxygen Delivery Method 08/13/22 17:59 08/13/22 18:06 08/13/22 18:19 Temperature 97.1 F L Pulse Rate 103 H 104 H Respiratory Rate Blood Pressure 88/50 L 95/53 L Blood Pressure [Left Arm] Pulse Oximetry Oxygen Delivery Method 08/13/22 18:49 08/13/22 19:04 08/13/22 19:20 Temperature Pulse Rate 96 H 102 H 108 H Respiratory Rate Blood Pressure 109/57 L 106/57 L 119/51 L Blood Pressure [Left Arm] Pulse Oximetry Oxygen Delivery Method 08/13/22 19:20 08/13/22 19:35 08/13/22 19:50 Temperature 97.1 F L Pulse Rate 95 H 98 H Respiratory Rate 16 Blood Pressure 108/58 L 101/50 L Blood Pressure [Left Arm] Pulse Oximetry Oxygen Delivery Method 08/13/22 19:50 08/13/22 20:20 08/13/22 20:23 Temperature Pulse Rate 90 Respiratory Rate 16 Blood Pressure 250/152 H 124/76 H Blood Pressure [Left Arm] Pulse Oximetry Oxygen Delivery Method 08/13/22 20:34 08/13/22 20:34 08/13/22 20:48 Temperature 97.1 F L Pulse Rate 106 H 99 H Respiratory Rate 18 Blood Pressure 97/54 L 108/57 L Blood Pressure [Left Arm] Pulse Oximetry Oxygen Delivery Method 08/13/22 20:48 08/13/22 21:04 08/13/22 21:19 Temperature Pulse Rate 100 H 101 H Respiratory Rate 18 Blood Pressure 115/76 119/69 Blood Pressure [Left Arm] Pulse Oximetry Oxygen Delivery Method 08/13/22 21:49 08/13/22 22:19 08/13/22 22:31 Temperature Pulse Rate 95 H 104 H 110 H Respiratory Rate Blood Pressure 116/65 118/74 99/54 L Blood Pressure [Left Arm] Pulse Oximetry Oxygen Delivery Method 08/14/22 10:27 08/14/22 00:02 08/14/22 00:07 Temperature 98.1 F Pulse Rate 96 H 101 H 101 H Respiratory Rate 20 22 Blood Pressure 107/59 L 93/39 L 94/47 L Blood Pressure [Left Arm] Pulse Oximetry 97 98 Oxygen Delivery Method Room Air Room Air 08/14/22 00:12 08/14/22 00:17 08/14/22 00:17 Temperature Pulse Rate 88 87 Respiratory Rate 14 14 Blood Pressure 89/54 L 120/76 H Blood Pressure [Left Arm] Pulse Oximetry 98 100 Oxygen Delivery Method Room Air Room Air Room Air 08/14/22 00:22 08/14/22 00:32 08/14/22 00:05 Temperature Pulse Rate 87 100 H Respiratory Rate 16 20 Blood Pressure 144/87 H 102/63 85/41 L Blood Pressure [Left Arm] Pulse Oximetry 100 100 93 L Oxygen Delivery Method Room Air Room Air 08/14/22 00:05 08/14/22 00:07 08/14/22 00:11 Temperature Pulse Rate 107 H 106 H Respiratory Rate 15 12 Blood Pressure 93/39 L 72/51 L Blood Pressure [Left Arm] Pulse Oximetry 96 98 92 L Oxygen Delivery Method 08/14/22 00:13 08/14/22 00:15 08/14/22 00:16 Temperature Pulse Rate 100 H 94 H 96 H Respiratory Rate 16 15 13 Blood Pressure 94/47 L 86/45 L 76/43 L Blood Pressure [Left Arm] Pulse Oximetry 84 L 98 99 Oxygen Delivery Method 08/14/22 00:18 08/14/22 00:20 08/14/22 00:25 Temperature Pulse Rate 62 99 H 109 H Respiratory Rate 17 17 25 H Blood Pressure 120/76 H 144/87 H 90/63 Blood Pressure [Left Arm] Pulse Oximetry 100 100 95 Oxygen Delivery Method 08/14/22 00:30 08/14/22 00:35 08/14/22 00:41 Temperature Pulse Rate 102 H 137 H 111 H Respiratory Rate 19 16 13 Blood Pressure 102/63 97/63 98/57 L Blood Pressure [Left Arm] Pulse Oximetry 99 98 99 Oxygen Delivery Method 08/14/22 00:45 08/14/22 00:50 08/14/22 01:00 Temperature Pulse Rate 115 H 116 H 109 H Respiratory Rate 16 16 18 Blood Pressure 108/61 105/60 85/50 L Blood Pressure [Left Arm] Pulse Oximetry 100 99 98 Oxygen Delivery Method 08/14/22 01:15 08/14/22 01:15 08/14/22 01:30 Temperature Pulse Rate 104 H 121 H 116 H Respiratory Rate 14 16 16 Blood Pressure 110/65 110/65 111/68 Blood Pressure [Left Arm] Pulse Oximetry 99 99 100 Oxygen Delivery Method 08/14/22 01:30 08/14/22 01:45 08/14/22 02:00 Temperature 97.7 F Pulse Rate 121 H 96 H 106 H Respiratory Rate 20 14 14 Blood Pressure 111/68 114/64 81/48 L Blood Pressure [Left Arm] Pulse Oximetry 100 99 96 Oxygen Delivery Method 08/14/22 02:15 08/14/22 02:30 08/14/22 02:45 Temperature Pulse Rate 108 H 109 H Respiratory Rate 20 11 L Blood Pressure 112/68 114/69 122/68 H Blood Pressure [Left Arm] Pulse Oximetry 98 100 Oxygen Delivery Method 08/14/22 06:21 08/14/22 07:29 08/14/22 02:45 Temperature 97.5 F L 97.5 F L Pulse Rate 98 H Respiratory Rate 18 Blood Pressure 122/68 H Blood Pressure [Left Arm] Pulse Oximetry 98 Oxygen Delivery Method 08/14/22 06:03 08/14/22 07:25 08/14/22 10:01 Temperature 97.5 F L Pulse Rate 98 H Respiratory Rate 18 Blood Pressure 118/78 114/77 Blood Pressure [Left Arm] 118/78 Pulse Oximetry 98 Oxygen Delivery Method Room Air 08/14/22 06:00 08/14/22 10:27 Temperature 97.5 F L Pulse Rate 98 H 96 H Respiratory Rate 18 18 Blood Pressure Blood Pressure [Left Arm] 118/78 107/59 L Pulse Oximetry 98 Oxygen Delivery Method Results Labs Labs: Short CBC 08/14/22 Range/Units 05:40 WBC 14.6 H (4.0-11.0) 10^3/uL Hgb 8.3 L (12.0-16.0) g/dL Hct 25.1 L (36.0-48.0) % Plt Count 149 L (150-450) 10^3/uL OB - PN: A/P Assessment and Plan (1) Acute postoperative anemia due to expected blood loss: Plan - day: 1 Plan: routine postop care Comment: Transfuse two units of packed RBCs. Recheck hemoglobin in the morning. Time Spent with Patient Time: Total time spent is greater than 50% in coordination of care (as documented) at patient's floor/unit and/or counseling patient: Total time spent with greater than 50% in coordination of care (as documented) at patient's floor/unit and/or counseling patient: less than 15 minutes
--- NOTE | 2022-08-14 14:17 | PC.NURSE ---
1410 up to br. no dizziness. voids large amount.
[2022-08-14] MEDS: 0.9 % SODIUM CHLORIDE 250 ML IV.SOLN IV (14:46)
--- NOTE | 2022-08-14 19:41 | PC.NURSE ---
1733 caption writer verifies blood product with sivakumar barber and all scanning, pre vs and inspection of unit of prbc completed together.transfusion initiated per sivakumar rn. sivakumar rn stays with pt for first 15 minutes of transfusion caption writer then takes over. pt on monitor for vs per yasir see vs. 1905 1 unit of prbc infused without problems. caption writer went to end transfusion documentation and records reflected it had not been initiated. caption writer scanned unit that was used and documenting with elizabeth barber verifying but had to document as late.
[2022-08-14] MEDS: SIMETHICONE 80 MG TAB.CHEW PO (19:45)
--- NOTE | 2022-08-14 19:54 | W.PC.ACHO ---
Registration Status: ADM IN Primary Language: Salvadorean Preferred Language: Salvadorean 1907 care relinquished suki barber Active Medications Generic Name Dose Route Start Last Admin Trade Name Freq PRN Reason Stop Dose Admin Al Hydroxide/Mg Hydroxide 2,400 mg 08/13/22 22:30 Magnesium Hydroxide 2,400 Mg/10 Ml Oral.Susp PO Q6H PRN Dyspepsia Benzocaine/Menthol 1 applic 08/14/22 01:08 08/14/22 02:04 Benzocaine/Menthol 85 Gram Bottle TOPICAL 1 applic DIRECTED PRN Administration Pain Carboprost Tromethamine 250 mcg 08/12/22 18:04 Carboprost Tromethamine 250 Mcg/Ml 1 Ml Vial IM Q15M PRN Bleeding Diphenhydramine HCl 25 mg 08/13/22 07:14 Diphenhydramine Hcl 50 Mg/Ml (1ml) Vial IV Q6H PRN Itching Docusate Sodium 100 mg 08/14/22 09:00 08/14/22 09:02 Docusate Sodium 100 Mg Capsule PO 100 mg BID KENNA Administration Enoxaparin Sodium 40 mg 08/14/22 07:00 08/14/22 10:42 Enoxaparin Sodium 40 Mg/0.4 Ml Syringe SUBQ 40 mg Q24H KENNA Administration Ephedrine Sulfate 5 mg 08/13/22 07:14 08/13/22 17:41 Ephedrine Sulfate 50 Mg/Ml Vial IV 5 mg Q5M PRN Administration Blood Pressure - Low Fentanyl Citrate 100 mcg 08/13/22 13:06 Fentanyl Citrate/Pf 100 Mcg/2 Ml Vial EPIDURAL Q4H PRN Pain Sodium Chloride 1,000 mls @ 125 mls/hr 08/12/22 18:15 08/13/22 18:02 Sodium Chloride 0.9% 1,000 Ml IV 125 mls/hr .Q8H PRN Administration Labor Induction Oxytocin 10 unit/ Sodium 501 mls @ 6.012 mls/hr 08/12/22 06:00 08/13/22 19:09 Chloride IV 2 milliunit/min Q24H KENNA 6.012 mls/hr Administration 2 MILLIUNIT/MIN Ropivacaine/Sodium Chloride 400 mg in 200 mls @ 6 mls/hr 08/13/22 07:15 08/13/22 08:40 Naropin 0.2% 400 Mg/200 Ml Bag EPIDURAL 6 mls/hr Q24H KENNA 6 mls/hr Administration Ropivacaine/Sodium Chloride 400 mg in 200 mls @ 6 mls/hr 08/13/22 13:15 Naropin 0.2% 400 Mg/200 Ml Bag EPIDURAL Q24H KENNA Lactated Ringer's 1,000 mls @ 125 mls/hr 08/13/22 22:30 Lactated Ringers IV .Q8H [facility] Sodium Chloride 1,000 mls @ 125 mls/hr 08/13/22 22:30 Sodium Chloride 0.9% 1,000 Ml IV .Q8H [facility] Sodium Chloride 1,000 mls @ 125 mls/hr 08/13/22 22:30 Sodium Chloride 0.9% 1,000 Ml IV .Q8H [facility] Ibuprofen 800 mg 08/13/22 22:30 Ibuprofen 400 Mg Tablet PO Q8H PRN Pain Ketorolac Tromethamine 30 mg 08/13/22 22:30 08/14/22 19:45 Ketorolac Tromethamine 30 Mg/Ml Vial IVP 08/15/22 22:31 30 mg Q6H PRN Administration Pain Lidocaine 5 ml 08/12/22 18:04 Lidocaine Viscous 2% 15 Ml Topical Solution TOPICAL ONCE PRN Pain Lidocaine 1 ml 08/12/22 18:04 Lidocaine Hcl 1% 200 Mg/20 Ml Mdv INJ ONCE PRN Pain Lidocaine 5 ml 08/13/22 07:14 Lidocaine Hcl 2% Pf 100 Mg/5 Ml Vial INJ Q1H PRN Pain Lidocaine 5 ml 08/13/22 13:06 Lidocaine Hcl 2% Pf 100 Mg/5 Ml Vial INJ Q1H PRN Pain Methylergonovine Maleate 0.2 mg 08/12/22 18:04 Methylergonovine Maleate 0.2 Mg/Ml Ampule IM ONCE PRN Uterine Contractility/Contract Misoprostol 600 mcg 08/12/22 18:04 Misoprostol 100 Mcg Tablet PO ONCE PRN Uterine Bleeding Nalbuphine HCl 10 mg 08/12/22 18:04 Nalbuphine Hcl 10 Mg/Ml Ampule IV Q3H PRN Pain Nalbuphine HCl 10 mg 08/13/22 22:30 Nalbuphine Hcl 10 Mg/Ml Ampule IV 08/14/22 22:35 Q3H PRN Itching Ondansetron HCl 4 mg 08/12/22 18:04 Ondansetron Pf 4 Mg/2 Ml Vial IV Q6H PRN Nausea And Vomiting Ondansetron HCl 4 mg 08/12/22 18:04 Ondansetron 4 Mg Rapdis Tablet SL Q6H PRN Nausea And Vomiting Ondansetron HCl 4 mg 08/13/22 22:30 Ondansetron Pf 4 Mg/2 Ml Vial IV Q6H PRN Nausea And Vomiting Ondansetron HCl 4 mg 08/13/22 22:30 Ondansetron 4 Mg Rapdis Tablet PO Q6H PRN Nausea And Vomiting Oxycodone/Acetaminophen 2 each 08/13/22 22:30 08/14/22 15:08 Oxycodone Hcl/Acetaminophen 5-325 Mg Tablet PO 2 each Q4H PRN Administration Pain Oxytocin 10 unit 08/12/22 18:04 Oxytocin 100 Unit/10 Ml Vial IM ONCE PRN Uterine Bleeding Simethicone 80 mg 08/13/22 22:30 08/14/22 19:45 Simethicone 80 Mg Tab.Chew PO 80 mg QID PRN Administration Abdominal Distention Diet Category Date Time Status Regular Consistency Diet Diet 08/14/22 Breakfast Active Neurology [place] coma scale total score 15 [place] coma scale total score 15 Respiratory Lung sounds [Throughout] clear Lung sounds [Throughout] clear Lung sounds [Throughout] clear Lung sounds [Throughout] clear Pulse Oximetry 97 Pulse Oximetry 97 Pulse Oximetry 99 Pulse Oximetry 98 Pulse Oximetry 99 Pulse Oximetry 97 Pulse Oximetry 98 Pulse Oximetry 97 Pulse Oximetry 97 Pulse Oximetry 96 Pulse Oximetry 97 Pulse Oximetry 99 Pulse Oximetry 100 Pulse Oximetry 90 Pulse Oximetry 100 Pulse Oximetry 97 Pulse Oximetry 100 Pulse Oximetry 98 Pulse Oximetry 98 Pulse Oximetry 98 Pulse Oximetry 99 Pulse Oximetry 96 Pulse Oximetry 96 Pulse Oximetry 99 Pulse Oximetry 99 Pulse Oximetry 98 Pulse Oximetry 98 Pulse Oximetry 98 Pulse Oximetry 100 Pulse Oximetry 98 Pulse Oximetry 96 Pulse Oximetry 99 Pulse Oximetry 100 Pulse Oximetry 100 Pulse Oximetry 99 Pulse Oximetry 99 Pulse Oximetry 98 Pulse Oximetry 99 Pulse Oximetry 100 Pulse Oximetry 99 Pulse Oximetry 98 Pulse Oximetry 100 Pulse Oximetry 99 Pulse Oximetry 95 Pulse Oximetry 100 Pulse Oximetry 100 Pulse Oximetry 100 Pulse Oximetry 100 Pulse Oximetry 99 Pulse Oximetry 98 Pulse Oximetry 84 Pulse Oximetry 98 Pulse Oximetry 92 Pulse Oximetry 98 Pulse Oximetry 98 Pulse Oximetry 96 Pulse Oximetry 93 Pulse Oximetry 97 Oxygen Delivery Method Room Air Oxygen Delivery Method Room Air Oxygen Delivery Method Room Air Oxygen Delivery Method Room Air Oxygen Delivery Method Room Air Oxygen Delivery Method Room Air Oxygen Delivery Method Room Air Oxygen Delivery Method Room Air Oxygen Delivery Method Room Air Oxygen Delivery Method Room Air Oxygen Delivery Method Room Air Oxygen Delivery Method Room Air Oxygen Delivery Method Room Air Cardiology Heart Sounds Regular Heart Sounds Regular Bowels Bowel Pattern No Bowel Movement Renal Bladder Pattern Continent
[2022-08-15 00:22] VITALS: BP 100/58
[2022-08-15] MEDS: SIMETHICONE 80 MG TAB.CHEW PO ×2 (00:38→06:41)
[2022-08-15 00:55] VITALS: BP 100/58; PULSE 96; RESP 16; TEMP 36.3; O2SAT 99
[2022-08-15 06:02] LABS: Basophils Percent Auto 0.2 % (0.2-2.0); Eosinophils Absolute Auto 0.1 10^3/uL (0.0-0.7); Eosinophils Percent Auto 1.1 % (0.9-7.0); Hematocrit 26.8 % (36.0-48.0); Hemoglobin 8.8 g/dL (12.0-16.0); Immature Granulocytes Abs Auto 0.09 10^3/uL (0.00-0.03); Lymphocytes Absolute Auto 1.9 10^3/uL (1.2-3.8); Lymphocytes Percent Auto 21.2 % (20.5-60.0); Mean Corpuscular HGB Conc 32.8 g/dL (29.9-35.2); Mean Corpuscular Hemoglobin 27.2 pg (26.7-34.0); Mean Corpuscular Volume 82.7 fL (81.0-99.0); Mean Platelet Volume 9.7 fL (9.5-13.5); Monocytes Absolute Auto 0.6 10^3/uL (0.3-0.8); Monocytes Percent Auto 7.1 % (1.7-12.0); Neutrophils Absolute Auto 6.1 10^3/uL (1.4-6.5); Neutrophils Percent Auto 69.4 % (43.0-75.0); Platelet Count 139 10^3/uL (150-450); Red Blood Count 3.24 10^6/uL (4.20-5.40); Red Cell Distribution Width 16.1 % (11.0-15.0); White Blood Count 8.9 10^3/uL (4.0-11.0)
[2022-08-15] MEDS: IBUPROFEN 400 MG TABLET 800 MG PO ×2 (06:41→15:06)
[2022-08-15 08:00] VITALS: BP 101/60
--- NOTE | 2022-08-15 08:11 | PC.NURSE ---
incision approximated with steristrips intact. lochia light no clots.
[2022-08-15 08:14] VITALS: BP 101/60; PULSE 100; RESP 16; TEMP 36.9
[2022-08-15] MEDS: DOCUSATE SODIUM 100 MG CAPSULE PO ×2 (08:16→21:36)
[2022-08-15] MEDS: ENOXAPARIN SODIUM 40 MG/0.4 ML SYRINGE SUBQ (12:56)
--- NOTE | 2022-08-15 13:09 | P.OBPN_ITS ---
OB - PN: Subj Subjective Patient comments: no complaints and pain well controlled [place] status: doing well and well Exam Narrative Exam Narrative: General exam was normal.? Breast exam was normal.? Respiratory function is normal.? Heart regular rate and rhythm.? Abdomen soft, nontender, bowel sounds positive, uterus is firm, nontender, lochia normal.? incision is clean and intact. Extremities no lesions.? Neurological and psychiatric exams are grossly intact. Constitutional Vital Signs - 24 hr 08/14/22 14:50 08/14/22 15:09 08/14/22 15:10 Temperature 97.5 F L 97.4 F L Pulse Rate 92 H 98 H Respiratory Rate 16 16 Blood Pressure 104/55 L 108/48 L Blood Pressure [Left Arm] Pulse Oximetry 96 96 Oxygen Delivery Method Room Air Room Air 08/14/22 14:44 08/14/22 14:49 08/14/22 15:08 Temperature Pulse Rate Respiratory Rate Blood Pressure 105/54 L 104/55 L 108/48 L Blood Pressure [Left Arm] Pulse Oximetry 99 99 Oxygen Delivery Method 08/14/22 15:15 08/14/22 15:15 08/14/22 15:30 Temperature Pulse Rate Respiratory Rate Blood Pressure 104/56 L 104/56 L 118/54 L Blood Pressure [Left Arm] Pulse Oximetry 99 98 98 Oxygen Delivery Method 08/14/22 15:45 08/14/22 16:00 08/14/22 16:09 Temperature 97.6 F 97.6 F Pulse Rate 88 Respiratory Rate 16 Blood Pressure 110/52 L 117/62 117/62 Blood Pressure [Left Arm] Pulse Oximetry 98 100 100 Oxygen Delivery Method Room Air 08/14/22 17:33 08/14/22 17:44 08/14/22 18:01 Temperature 97.3 F L 98.2 F 98.0 F Pulse Rate 97 H 91 H 95 H Respiratory Rate 18 16 16 Blood Pressure 101/58 L 107/45 L 104/59 L Blood Pressure [Left Arm] Pulse Oximetry 97 97 Oxygen Delivery Method Room Air 08/14/22 16:00 08/14/22 16:15 08/14/22 16:31 Temperature Pulse Rate Respiratory Rate Blood Pressure 117/62 113/62 77/49 L Blood Pressure [Left Arm] Pulse Oximetry 97 90 L 100 Oxygen Delivery Method 08/14/22 16:33 08/14/22 16:45 08/14/22 17:00 Temperature Pulse Rate Respiratory Rate Blood Pressure 96/54 L 101/57 L 109/59 L Blood Pressure [Left Arm] Pulse Oximetry 99 97 96 Oxygen Delivery Method 08/14/22 17:16 08/14/22 17:30 08/14/22 17:34 Temperature Pulse Rate Respiratory Rate Blood Pressure 110/52 L 94/60 101/58 L Blood Pressure [Left Arm] Pulse Oximetry 97 97 98 Oxygen Delivery Method 08/14/22 17:46 08/14/22 17:46 08/14/22 18:00 Temperature Pulse Rate Respiratory Rate Blood Pressure 107/45 L 107/45 L 104/59 L Blood Pressure [Left Arm] Pulse Oximetry 99 98 99 Oxygen Delivery Method 08/14/22 18:15 08/14/22 19:16 08/14/22 17:33 Temperature 97.3 F L Pulse Rate 97 H Respiratory Rate 18 Blood Pressure 104/59 L 97/70 101/58 L Blood Pressure [Left Arm] Pulse Oximetry Oxygen Delivery Method 08/14/22 17:33 08/14/22 19:39 08/14/22 20:00 Temperature 97.3 F L 98.0 F 97.5 F L Pulse Rate 97 H 95 H 91 H Respiratory Rate 16 16 18 Blood Pressure 101/58 L 97/70 Blood Pressure [Left Arm] 97/70 Pulse Oximetry 97 100 Oxygen Delivery Method Room Air 08/14/22 20:08 08/14/22 20:05 08/15/22 00:55 Temperature 97.3 F L Pulse Rate 98 H 96 H Respiratory Rate 16 16 Blood Pressure 118/67 Blood Pressure [Left Arm] 100/58 L Pulse Oximetry 98 99 Oxygen Delivery Method Room Air Room Air 08/15/22 08:14 08/14/22 19:16 08/14/22 20:00 Temperature 98.5 F Pulse Rate 100 H Respiratory Rate 16 Blood Pressure 97/70 118/67 Blood Pressure [Left Arm] 101/60 Pulse Oximetry Oxygen Delivery Method 08/15/22 00:22 08/15/22 08:00 Temperature Pulse Rate Respiratory Rate Blood Pressure 100/58 L 101/60 Blood Pressure [Left Arm] Pulse Oximetry Oxygen Delivery Method Results Labs Labs: Short CBC 08/15/22 Range/Units 05:45 WBC 8.9 (4.0-11.0) 10^3/uL Hgb 8.8 L (12.0-16.0) g/dL Hct 26.8 L (36.0-48.0) % Plt Count 139 L (150-450) 10^3/uL OB - PN: A/P Assessment and Plan (1) Acute postoperative anemia due to expected blood loss: Plan - day: 2 Plan: routine postop care Time Spent with Patient Time: Total time spent is greater than 50% in coordination of care (as documented) at patient's floor/unit and/or counseling patient: Total time spent with greater than 50% in coordination of care (as documented) at patient's floor/unit and/or counseling patient: less than 15 minutes
--- NOTE | 2022-08-15 15:45 | PC.NURSE ---
yellow seedy stool
[2022-08-15 16:46] VITALS: BP 109/76; PULSE 93; RESP 16; TEMP 36.8
[2022-08-15] MEDS: ACETAMINOPHEN 500 MG TABLET 1000 MG PO (18:25)
--- NOTE | 2022-08-15 19:28 | W.PC.ACHO ---
Registration Status: ADM IN Primary Language: [place] Preferred Language: [place] 1912 care relinquished to ines barber Active Medications Generic Name Dose Route Start Last Admin Trade Name Freq PRN Reason Stop Dose Admin Acetaminophen 1,000 mg 08/15/22 12:51 08/15/22 18:25 Acetaminophen 500 Mg Tablet PO 1,000 mg Q6H PRN Administration Pain Al Hydroxide/Mg Hydroxide 2,400 mg 08/13/22 22:30 Magnesium Hydroxide 2,400 Mg/10 Ml Oral.Susp PO Q6H PRN Dyspepsia Benzocaine/Menthol 1 applic 08/14/22 01:08 08/14/22 02:04 Benzocaine/Menthol 85 Gram Bottle TOPICAL 1 applic DIRECTED PRN Administration Pain Carboprost Tromethamine 250 mcg 08/12/22 18:04 Carboprost Tromethamine 250 Mcg/Ml 1 Ml Vial IM Q15M PRN Bleeding Diphenhydramine HCl 25 mg 08/13/22 07:14 Diphenhydramine Hcl 50 Mg/Ml (1ml) Vial IV Q6H PRN Itching Docusate Sodium 100 mg 08/14/22 09:00 08/15/22 08:16 Docusate Sodium 100 Mg Capsule PO 100 mg BID KENNA Administration Enoxaparin Sodium 40 mg 08/14/22 07:00 08/15/22 12:56 Enoxaparin Sodium 40 Mg/0.4 Ml Syringe SUBQ 40 mg Q24H KENNA Administration Ephedrine Sulfate 5 mg 08/13/22 07:14 08/13/22 17:41 Ephedrine Sulfate 50 Mg/Ml Vial IV 5 mg Q5M PRN Administration Blood Pressure - Low Fentanyl Citrate 100 mcg 08/13/22 13:06 Fentanyl Citrate/Pf 100 Mcg/2 Ml Vial EPIDURAL Q4H PRN Pain Sodium Chloride 1,000 mls @ 125 mls/hr 08/12/22 18:15 08/13/22 18:02 Sodium Chloride 0.9% 1,000 Ml IV 125 mls/hr .Q8H PRN Administration Labor Induction Oxytocin 10 unit/ Sodium 501 mls @ 6.012 mls/hr 08/12/22 06:00 08/13/22 19:09 Chloride IV 2 milliunit/min Q24H KENNA 6.012 mls/hr Administration 2 MILLIUNIT/MIN Ropivacaine/Sodium Chloride 400 mg in 200 mls @ 6 mls/hr 08/13/22 07:15 08/13/22 08:40 Naropin 0.2% 400 Mg/200 Ml Bag EPIDURAL 6 mls/hr Q24H KENNA 6 mls/hr Administration Ropivacaine/Sodium Chloride 400 mg in 200 mls @ 6 mls/hr 08/13/22 13:15 Naropin 0.2% 400 Mg/200 Ml Bag EPIDURAL Q24H KENNA Lactated Ringer's 1,000 mls @ 125 mls/hr 08/13/22 22:30 Lactated Ringers IV .Q8H KENNA Sodium Chloride 1,000 mls @ 125 mls/hr 08/13/22 22:30 Sodium Chloride 0.9% 1,000 Ml IV .Q8H KENNA Sodium Chloride 1,000 mls @ 125 mls/hr 08/13/22 22:30 Sodium Chloride 0.9% 1,000 Ml IV .Q8H KENNA Ibuprofen 800 mg 08/13/22 22:30 08/15/22 15:06 Ibuprofen 400 Mg Tablet PO 800 mg Q8H PRN Administration Pain Ketorolac Tromethamine 30 mg 08/13/22 22:30 08/14/22 19:45 Ketorolac Tromethamine 30 Mg/Ml Vial IVP 08/15/22 22:31 30 mg Q6H PRN Administration Pain Lidocaine 5 ml 08/12/22 18:04 Lidocaine Viscous 2% 15 Ml Topical Solution TOPICAL ONCE PRN Pain Lidocaine 1 ml 08/12/22 18:04 Lidocaine Hcl 1% 200 Mg/20 Ml Mdv INJ ONCE PRN Pain Lidocaine 5 ml 08/13/22 07:14 Lidocaine Hcl 2% Pf 100 Mg/5 Ml Vial INJ Q1H PRN Pain Lidocaine 5 ml 08/13/22 13:06 Lidocaine Hcl 2% Pf 100 Mg/5 Ml Vial INJ Q1H PRN Pain Methylergonovine Maleate 0.2 mg 08/12/22 18:04 Methylergonovine Maleate 0.2 Mg/Ml Ampule IM ONCE PRN Uterine Contractility/Contract Misoprostol 600 mcg 08/12/22 18:04 Misoprostol 100 Mcg Tablet PO ONCE PRN Uterine Bleeding Nalbuphine HCl 10 mg 08/12/22 18:04 Nalbuphine Hcl 10 Mg/Ml Ampule IV Q3H PRN Pain Ondansetron HCl 4 mg 08/12/22 18:04 Ondansetron Pf 4 Mg/2 Ml Vial IV Q6H PRN Nausea And Vomiting Ondansetron HCl 4 mg 08/12/22 18:04 Ondansetron 4 Mg Rapdis Tablet SL Q6H PRN Nausea And Vomiting Ondansetron HCl 4 mg 08/13/22 22:30 Ondansetron Pf 4 Mg/2 Ml Vial IV Q6H PRN Nausea And Vomiting Ondansetron HCl 4 mg 08/13/22 22:30 Ondansetron 4 Mg Rapdis Tablet PO Q6H PRN Nausea And Vomiting Oxycodone/Acetaminophen 2 each 08/13/22 22:30 08/15/22 11:07 Oxycodone Hcl/Acetaminophen 5-325 Mg Tablet PO 2 each Q4H PRN Administration Pain Oxytocin 10 unit 08/12/22 18:04 Oxytocin 100 Unit/10 Ml Vial IM ONCE PRN Uterine Bleeding Simethicone 80 mg 08/13/22 22:30 08/15/22 06:41 Simethicone 80 Mg Tab.Chew PO 80 mg QID PRN Administration Abdominal Distention Neurology [place] coma scale total score 15 Respiratory Lung sounds [Throughout] clear Lung sounds [Throughout] clear Lung sounds [Throughout] clear Pulse Oximetry 99 Pulse Oximetry 98 Pulse Oximetry 100 Pulse Oximetry 97 Oxygen Delivery Method Room Air Oxygen Delivery Method Room Air Oxygen Delivery Method Room Air Cardiology Heart Sounds Strong,Regular Heart Sounds Strong,Regular Heart Sounds Regular Bowels Bowel Pattern No Bowel Movement Renal Bladder Pattern Continent Bladder Pattern Continent
[2022-08-15 23:48] VITALS: BP 98/55; PULSE 94; RESP 16; TEMP 37
[2022-08-16] MEDS: IBUPROFEN 400 MG TABLET 800 MG PO ×2 (02:58→12:33)
--- NOTE | 2022-08-16 04:28 | PC.NURSE ---
pt c/o being overwhelmed d/t screaming and unable to comfort for the last few hours, she has tried to comfort infant and infants father has tried to comfort infant. Parents express they are exhausted. Nurse states that infant can come to nursery while able and if pt census and acuity allows. pt and spouse agree. to nursery with nurse.
[2022-08-16 07:55] VITALS: BP 101/58; PULSE 96
[2022-08-16 08:05] VITALS: RESP 16
[2022-08-16 08:08] VITALS: BP 101/58; PULSE 96; RESP 16; TEMP 36.6
[2022-08-16] MEDS: DOCUSATE SODIUM 100 MG CAPSULE PO (08:27)
--- NOTE | 2022-08-16 10:57 | PC.NURSE ---
patient pumped 10 mL and is sitting on couch holding baby. significant other present. patient denies any further needs
--- NOTE | 2022-08-16 11:05 | PM.OBPN ---
OB - PN: Subj Subjective Patient comments: no complaints and pain well controlled [place] status: doing well and well Exam Narrative Exam Narrative: . General exam was normal, heart regular rate and rhythm, lungs clear to auscultation. Abdomen soft, nontender, incision is clean and intact. Uterus is firm, nontender. Lochia normal. Neuro and psychiatric exam and normal. Constitutional Vital Signs - 24 hr 08/15/22 23:48 08/16/22 07:55 08/15/22 16:46 Temperature 98.3 F Pulse Rate 94 H 96 H 93 H Respiratory Rate 16 Blood Pressure 98/55 L 101/58 L Blood Pressure [Left Arm] 109/76 08/15/22 23:48 08/16/22 08:05 08/16/22 08:08 Temperature 98.6 F 97.9 F Pulse Rate 96 H Respiratory Rate 16 16 16 Blood Pressure Blood Pressure [Left Arm] 101/58 L OB - PN: A/P Assessment and Plan (1) Acute postoperative anemia due to expected blood loss: Plan ppd3, Stable. Discharge home. Plan - Plan: routine postop care and discharge home Comment: mot perc Time Spent with Patient Time: Total time spent is greater than 50% in coordination of care (as documented) at patient's floor/unit and/or counseling patient: Total time spent with greater than 50% in coordination of care (as documented) at patient's floor/unit and/or counseling patient: less than 15 minutes
[2022-08-16] MEDS: ENOXAPARIN SODIUM 40 MG/0.4 ML SYRINGE SUBQ (12:35)
[2023-01-21 14:17] LABS: General Pathology SENT
== END 2022-08-16 16:04 | disposition home or self-care (01) | DRG 787 ==
PROVIDERS: Admitting Provider Midwife; PCP Internal Medicine; Visit Provider Obstetrics & Gynecology
PROC: 10D00Z1 Extraction of Products of Conception, Low, Open Approach (ICD-10-PCS; CPT 59514; principal; 2022-08-13 14:30)
DX: O99.284 Endocrine, nutritional and metabolic diseases complicating childbirth (principal); D62 Acute posthemorrhagic anemia; E03.9 Hypothyroidism, unspecified; O77.9 Labor and delivery complicated by fetal stress, unspecified; Z3A.39 39 weeks gestation of pregnancy; Z37.0 Single live birth; O90.81 Anemia of the puerperium; Z86.16 Personal history of COVID-19; Z87.891 Personal history of nicotine dependence; Z88.0 Allergy status to penicillin; Z83.3 Family history of diabetes mellitus; Z82.49 Family history of ischemic heart disease and other diseases of the circulatory system; Z79.82 Long term (current) use of aspirin; Z79.890 Hormone replacement therapy; Z79.899 Other long term (current) drug therapy
CPT/HCPCS: 36415; 36430; 51702; 59050; 80307; 85025; 86850; 86900; 86901; 88307; 94667; 94761; 96365; 96366; 96372; 96375; 96376; P9016